=== PATIENT | male | born 1955 | race Caucasian/White ===

== ENCOUNTER 2016-07-28 08:24 | Day surgery (SDC) | payer OTHER ==
[~2016-07-28] VITALS: Ht 177.8 cm; Wt 88.2 kg
== END 2016-07-28 11:54 | disposition home or self-care (01) ==
LOC: RAD.S 08:24 → EDSTATUS 10:00 → RAD.S 10:00
PROC: B513YZA Fluoroscopy of Right Jugular Veins using Other Contrast, Guidance (ICD-10-PCS; principal; 2016-07-28)
PROC: 05HM33Z Insertion of Infusion Device into Right Internal Jugular Vein, Percutaneous Approach (ICD-10-PCS; principal; 2016-07-28)
PROC: B543ZZA Ultrasonography of Right Jugular Veins, Guidance (ICD-10-PCS; principal; 2016-07-28)
DX: C22.0 Liver cell carcinoma (principal); Z79.899 Other long term (current) drug therapy; Z79.891 Long term (current) use of opiate analgesic; Z88.1 Allergy status to other antibiotic agents; Z88.8 Allergy status to other drugs, medicaments and biological substances